=== PATIENT | female | born 1990 | race African-American/Black ===

== ENCOUNTER 2018-09-26 19:59 | Emergency (ER) | payer OTHER ==
[~2018-09-26] VITALS: Ht 167.6 cm; Wt 77.1 kg
--- OUTSIDE RECORDS SUMMARY | 2018-09-26 20:01 | XMS REPORT ---
Author Author Kathrine Cook [facility] eClinicalWorks Address Unknown Phone Unavailable Care Team Providers Care Support Team Assoc Name Role Phone Kathrine Cook CP Unavailable Allergies, Adverse Reactions, Alerts Substance Reaction Event Type N.K.D.A. Info Not Available Non Drug Allergy Problems Problem Type Condition Code Onset Dates Condition Status Assessment Vaginal itching L29.8 Active Assessment Encounter for sexually transmitted disease counseling Z70.8 Active Problem Vaginal discharge N89.8 Active Problem Deep dyspareunia N94.12 Active Problem Rash R21 Active Assessment Vaginal discharge N89.8 Active Assessment Deep dyspareunia N94.12 Active Problem Vaginal itching L29.8 Active Problem Encounter for sexually transmitted disease counseling Z70.8 Active Medications No Known Medications Results No Known Results Summary Purpose eClinicalWorks Submission
--- OUTSIDE RECORDS SUMMARY | 2018-09-26 20:01 | XMS REPORT ---
Author Author [facility] Address Unknown Phone Unavailable Care Team Providers Care Rubber Cutting Machine Tender Name Role Phone JUS GREENE Unavailable Unavailable LAURA EVERETT Unavailable Unavailable Problems This patient has no known problems. Allergies, Adverse Reactions, Alerts This patient has no known allergies or adverse reactions. Medications This patient has no known medications. Results Test Description Test Time Test Comments Text Results Atomic Results Result Comments TISSUE EXAM 2017-03-07 09:52:00 Surgical Pathology Report Case: [id number] Authorizing Provider: Carly Thurston MD Collected: 03/05/2017 0917 Ord ering Location: [facility] Received: 03/05/2017 1103 SERVICES Pathologist: Ayaka Anand MD Specimen: Fallopian Tube, Right, RIGHT FALLOPIAN TUBE AND ECTOPIC FALLOPIAN TUBE, RIGHT, RESECTION: - TROPHOBLASTIC TISSUE AND IMPLANTATION SITE IDENTIFIED AT THE FIMBRIAL END, CONSISTENT WITH ECTOPIC PREGANCY 13531Ekhcrsmn rupture ectopic pregnancyRight fallopian tube and ectopic pregnancyThe specimen is received in a formalin-filled container and labeled with the patient's information labeled "right fallopian tube and ectopic " and consists of an enlarged fallopian tube measuring 7 cm in length x up to 1.5 cm in diameter. The entire lumen is filled with blood clot. No distinct tissue or villous tissue is seen grossly. The specimen is entirely submitted as follows: A1 to A8, distal to proximal; A9 through A12, entire blood clot submitted. CG/pl No chorionic villi are identified. HEPATIC FUNCTION PANEL 2017-03-05 03:37:00 TOTAL PROTEIN (BEAKER) (test diiy=129) 6.5 gm/dL 6.0-8.3 ALBUMIN (BEAKER) (test aqhp=4144) 3.7 g/dL 3.5-5.0 BILIRUBIN TOTAL (BEAKER) (test yppt=923) 0.5 mg/dL 0.2-1.2 BILIRUBIN DIRECT (BEAKER) (test yvht=919) 0.2 mg/dL 0.1-0.5 ALKALINE PHOSPHATASE (BEAKER) (test pbgu=662) 45 U/L 40-150 AST (SGOT) (BEAKER) (test rhsc=189) 15 U/L 5-34 ALT (SGPT) (BEAKER) (test okbt=252) 6 U/L 6-55 HCG, QUANTITATIVE, [id number] 21:48:00* Test Item Value Reference Range Comments GONADOTROPIN, CHORIONIC (HCG) QUANT (BEAKER) (test ahdo=900) 2089 mIU/mL 0-10 Non- Females: <10 mIU/mL Females: Gestation Age Reference Range(mIU/mL) 0.2-1 Week 5-50 1-2 Weeks 50-500 2-3 Weeks 100-5,000 3-4 Weeks 500-10,000 4-5 Weeks 1,000-50,000 5-6 Weeks 10,000-100,000 6-8 Weeks 15,000-200,000 2-3 Months 10,000-100,000 BASIC METABOLIC PANEL 2017-03-04 21:16:00* Test Item Value Reference Range Comments SODIUM (BEAKER) (test sqlp=891) 139 meq/L 135-148 POTASSIUM (BEAKER) (test tgin=741) 3.5 meq/L 3.6-5.5 CHLORIDE (BEAKER) (test fqwp=075) 101 meq/L 98-106 CO2 (BEAKER) (test gsam=293) 26 meq/L 24-32 BLOOD UREA NITROGEN (BEAKER) (test mqxu=681) 10 mg/dL 10-26 CREATININE (BEAKER) (test glyh=203) 0.71 mg/dL 0.50-1.20 GLUCOSE RANDOM (BEAKER) (test obtn=107) 94 mg/dL 70-110 CALCIUM (BEAKER) (test wtth=994) 9.1 mg/dL 8.5-10.5 EGFR (BEAKER) (test guii=3298) 123 mL/min/1.73 sq m ESTIMATED GFR IS NOT ACCURATE CREATININE CLEARANCE IN PREDICTING GLOMERULAR FILTRATION RATE. ESTIMATED GFR IS NOT APPLICABLE FOR DIALYSIS PATIENTS. CBC W/PLT COUNT & AUTO [id number] 21:09:00* Test Item Value Reference Range Comments WHITE BLOOD CELL COUNT (BEAKER) (test qstv=868) 3.9 10e3/ L 4.0-10.0 RED BLOOD CELL COUNT (BEAKER) (test rwcy=916) 3.70 10e6/ L 4.00-5.00 HEMOGLOBIN (BEAKER) (test ajeb=404) 10.5 g/dL 12.0-15.0 HEMATOCRIT (BEAKER) (test fsyp=829) 32.2 % 36.0-45.0 MEAN CORPUSCULAR VOLUME (BEAKER) (test nfgp=562) 87.0 fL 82.0-99.0 MEAN CORPUSCULAR HEMOGLOBIN (BEAKER) (test dftk=111) 28.5 pg 27.0-33.0 MEAN CORPUSCULAR HEMOGLOBIN CONC (BEAKER) (test zorm=130) 32.7 g/dL 32.0-36.0 RED CELL DISTRIBUTION WIDTH (BEAKER) (test iols=532) 11.8 % 10.3-14.2 PLATELET COUNT (BEAKER) (test fzje=633) 267 10e3/ L 150-430 MEAN PLATELET VOLUME (BEAKER) (test votn=697) 7.4 fL 6.5-10.5 NEUTROPHILS RELATIVE PERCENT (BEAKER) (test diyf=929) 59 % LYMPHOCYTES RELATIVE PERCENT (BEAKER) (test gzca=365) 29 % MONOCYTES RELATIVE PERCENT (BEAKER) (test agsz=290) 11 % EOSINOPHILS RELATIVE PERCENT (BEAKER) (test uzgt=243) 1 % BASOPHILS RELATIVE PERCENT (BEAKER) (test otvp=435) 0 % NEUTROPHILS ABSOLUTE COUNT (BEAKER) (test mykm=141) 2.27 10e3/ L 1.80-8.00 LYMPHOCYTES ABSOLUTE COUNT (BEAKER) (test lhgd=712) 1.10 10e3/ L 1.48-4.50 MONOCYTES ABSOLUTE COUNT (BEAKER) (test rjio=082) 0.43 10e3/ L 0.00-1.30 EOSINOPHILS ABSOLUTE COUNT (BEAKER) (test zlwd=369) 0.04 10e3/ L 0.00-0.50 BASOPHILS ABSOLUTE COUNT (BEAKER) (test lmag=089) 0.02 10e3/ L 0.00-0.20 URINALYSIS W/ [id number] 20:54:00* Test Item Value Reference Range Comments COLOR (BEAKER) (test xidu=030) Yellow CLARITY (BEAKER) (test byfw=823) Slightly Hazy SPECIFIC GRAVITY UA (BEAKER) (test guqu=126) 1.025 1.001-1.035 PH UA (BEAKER) (test bufg=805) 6.0 5.0-8.0 PROTEIN UA (BEAKER) (test kpde=338) Trace Negative GLUCOSE UA (BEAKER) (test bicz=476) Negative Negative KETONES UA (BEAKER) (test tnjb=250) 40 mg/dL Negative BILIRUBIN UA (BEAKER) (test cyrt=183) Negative Negative BLOOD UA (BEAKER) (test nzdl=372) Moderate Negative NITRITE UA (BEAKER) (test xlgw=022) Negative Negative LEUKOCYTE ESTERASE UA (BEAKER) (test qlyc=942) Negative Negative UROBILINOGEN UA (BEAKER) (test hbyp=876) 1.0 mg/dL 0.2-1.0 BACTERIA (BEAKER) (test cyfy=099) Occasional MUCUS (BEAKER) (test jfdr=3461) Moderate RBC UA-MANUAL (BEAKER) (test vxpe=2758) 5-10 /HPF WBC UA-MANUAL (BEAKER) (test kdpb=1109) 5-10 /HPF SQUAMOUS EPITHELIAL MANUAL (BEAKER) (test ofch=3268) <5 /HPF SOURCE(BEAKER) (test rskk=3257) SCREEN, [id number] 20:52:00* Test Item Value Reference Range Comments TEST URINE (BEAKER) (test csaa=055) Positive URINE [id number] 11:38:00* Test Item Value Reference Range Comments CULTURE (BEAKER) (test adrx=3285) ESCHERICHIA COLI >100,000 col/mL Escherichia coli Amikacin (test code=1) Ampicillin + Sulbactam (test code=6) Aztreonam (test code=32) Cefepime (test code=51) Cefoxitin (test code=68) Ceftazidime (test code=27) Ceftriaxone (test code=52) Ertapenem (test code=38) Gentamicin (test code=18) Levofloxacin (test code=22) Meropenem (test code=34) Nitrofurantoin (test code=23) Piperacillin + Tazobactam (test code=29) Tetracycline (test code=2) Tobramycin (test code=25) Trimethoprim + Sulfamethoxazole (test code=47) URINALYSIS W/ REFLEX URINE [id number] 13:21:00* Test Item Value Reference Range Comments COLOR (BEAKER) (test mstk=503) Yellow CLARITY (BEAKER) (test qfuk=159) Clear SPECIFIC GRAVITY UA (BEAKER) (test mrnr=716) 1.020 1.001-1.035 PH UA (BEAKER) (test uian=218) 7.0 5.0-8.0 PROTEIN UA (BEAKER) (test ynzq=931) Negative Negative GLUCOSE UA (BEAKER) (test dghg=639) Negative Negative KETONES UA (BEAKER) (test qowx=327) Trace Negative BILIRUBIN UA (BEAKER) (test kqnj=557) Negative Negative BLOOD UA (BEAKER) (test pvpu=485) Negative Negative NITRITE UA (BEAKER) (test kdxt=243) Negative Negative LEUKOCYTE ESTERASE UA (BEAKER) (test opwo=863) Negative Negative UROBILINOGEN UA (BEAKER) (test jjnb=283) 4.0 mg/dL 0.2-1.0 BACTERIA (BEAKER) (test pmjs=094) Moderate MUCUS (BEAKER) (test sqet=4983) Few RBC UA-MANUAL (BEAKER) (test bvrz=3436) None Seen /HPF WBC UA-MANUAL (BEAKER) (test epju=6224) 5-10 /HPF SQUAMOUS EPITHELIAL MANUAL (BEAKER) (test jxjt=2969) 10-20 /HPF SOURCE(BEAKER) (test drnn=8726) SCREEN, [id number] 13:19:00* Test Item Value Reference Range Comments TEST URINE (BEAKER) (test psxc=405) Negative
--- OUTSIDE RECORDS SUMMARY | 2018-09-26 20:01 | XMS REPORT | Clinical Summary ---
Author Author [facility] Address Unknown Phone Unavailable Care Team Providers Care Instructor Psychiatric Aide Name Role Phone Sharpless PCP Allergies No Known Allergies Medications End Date Status Medication Sig Dispensed Refills Start Date Active docusate sodium (COLACE) Take 1 30 capsule 0 100 MG capsule capsule (100 7 mg total) by mouth 2 (two) times daily. Active Problems Problem Noted Date Tubal without intrauterine 03/05/2017 Social History Date Tobacco Use Types Packs/Day Years Used Never Smoker Alcohol Use Drinks/Week oz/Week Comments No Sex Assigned at Date Recorded Not on file Industry Job Start Date Occupation Not on file Not on file Not on file Travel End Travel History Travel Start No recent travel history available. Last Filed Vital Signs Not on file Plan of Treatment Not on file Results Not on fileafter 09/25/2017
== END 2018-09-26 20:41 | disposition left against medical advice (07) ==
LOC: FSED 19:59
DX: N89.8 Other specified noninflammatory disorders of vagina (principal)